=== PATIENT | male | born 1975 | race Caucasian/White ===

== ENCOUNTER 2019-07-22 22:08 | Inpatient (IN) | payer OTHER ==
[2019-07-23] MEDS ORDERED: oxyCODONE 15 MG TAB PO
[2019-07-23] MEDS ORDERED: oxyCODONE 5 MG TAB PO
[2019-07-23] MEDS: oxyCODONE 5 MG TAB PO ×5 (00:08→22:00)
[2019-07-23] MEDS ORDERED: HYDROmorphONE 0.5 MG/0.5 ML SYG IV (01:00)
[2019-07-23] MEDS ORDERED: ACETAMINOPHEN 325 MG TAB PO (01:30)
[2019-07-23] MEDS ORDERED: MAGNESIUM HYDROXIDE 30ML CUP PO (01:30)
[2019-07-23] MEDS ORDERED: LACTULOSE 30ML CUP PO (01:30)
[2019-07-23] MEDS ORDERED: BISACODYL 10 MG SUPP PR (01:30)
[2019-07-23] MEDS: VORICONAZOLE 200 MG TAB PO ×3 (01:35→21:34)
[2019-07-23] MEDS ORDERED: PENDING SANTYL ORDER FOR WOUND CARE XX (04:30)
[2019-07-23] MEDS ORDERED: VANCOMYCIN 1 GM IVPB (06:00)
[2019-07-23] MEDS: VANCOMYCIN 1 GM 250 ML IVPB (06:00)
[2019-07-23] MEDS: PANTOPRAZOLE (EC) 40 MG TAB PO (06:34)
[2019-07-23] MEDS ORDERED: VORICONAZOLE 200 MG TAB PO (09:00)
[2019-07-23] MEDS: ONDANSETRON 4 MG TAB PO (09:03)
[2019-07-23] MEDS: FAMOTIDINE 20 MG TAB PO ×2 (09:05→21:33)
[2019-07-23] MEDS: ENOXAPARIN 40 MG/0.4 ML SYG SC (09:05)
[2019-07-23] MEDS: GABAPENTIN 300 MG CAP PO ×3 (09:05→21:34)
[2019-07-23] MEDS: DOCUSATE SODIUM 100 MG CAP PO ×2 (09:05→21:32)
[2019-07-23] MEDS ORDERED: VANCOMYCIN IV PER PHARMACY XX (10:00)
[2019-07-23] MEDS: VANCOMYCIN 1.5 GM/NS 250 ML 250 ML IVPB ×2 (12:00→17:13)
[2019-07-23] MEDS: SENNA TAB PO (21:32)
[2019-07-24] MEDS: VANCOMYCIN 1 GM 250 ML IVPB ×3 (00:32→17:24)
[2019-07-24] MEDS ORDERED: VANCOMYCIN 1.25 GM/NS 250 ML 250 ML IVPB (01:00)
[2019-07-24] MEDS: PANTOPRAZOLE (EC) 40 MG TAB PO (06:20)
[2019-07-24] MEDS: GABAPENTIN 300 MG CAP PO ×3 (08:50→20:55)
[2019-07-24] MEDS: FAMOTIDINE 20 MG TAB PO ×2 (08:50→20:55)
[2019-07-24] MEDS: DOCUSATE SODIUM 100 MG CAP PO ×2 (08:50→20:53)
[2019-07-24] MEDS: VORICONAZOLE 200 MG TAB PO ×2 (08:50→20:55)
[2019-07-24] MEDS: oxyCODONE 5 MG TAB PO ×4 (08:54→19:47)
[2019-07-24] MEDS: ENOXAPARIN 40 MG/0.4 ML SYG SC ×2 (09:00→10:36)
[2019-07-24] MEDS: ONDANSETRON 4 MG INJ IV (09:02)
[2019-07-24] MEDS: ONDANSETRON 4 MG TAB PO (09:06)
[2019-07-24] MEDS: POLYETHYLENE GLYCOL 17 GM PACKET PO (10:43)
[2019-07-24] MEDS ORDERED: NACL 0.9% 3 ML SYG IV (11:00)
[2019-07-24] MEDS: PSYLLIUM 28% PACKET PO ×2 (12:25→21:00)
[2019-07-24] MEDS: SOD FERRIC GLUC COMPLX 125 MG in SOD CHLORIDE 0.9% 100 ML IVPB (13:50)
[2019-07-24] MEDS: SENNA TAB PO (20:55)
[2019-07-25] MEDS: VANCOMYCIN 1 GM 250 ML IVPB ×3 (02:17→17:09)
[2019-07-25] MEDS: oxyCODONE 5 MG TAB PO ×5 (02:20→20:16)
[2019-07-25] MEDS: PANTOPRAZOLE (EC) 40 MG TAB PO (06:34)
[2019-07-25] MEDS: PSYLLIUM 28% PACKET PO ×2 (08:44→20:16)
[2019-07-25] MEDS: DOCUSATE SODIUM 100 MG CAP PO ×2 (08:44→20:15)
[2019-07-25] MEDS: GABAPENTIN 300 MG CAP PO ×3 (08:44→20:15)
[2019-07-25] MEDS: VORICONAZOLE 200 MG TAB PO ×2 (08:44→20:16)
[2019-07-25] MEDS: FAMOTIDINE 20 MG TAB PO ×2 (08:44→20:16)
[2019-07-25] MEDS: ENOXAPARIN 40 MG/0.4 ML SYG SC (08:48)
[2019-07-25] MEDS: FERROUS SULFATE (EC) 325 MG TAB PO (17:07)
[2019-07-25] MEDS: SENNA TAB PO (20:16)
[2019-07-26] MEDS: VANCOMYCIN 1 GM 250 ML IVPB ×3 (00:56→17:36)
[2019-07-26] MEDS: oxyCODONE 5 MG TAB PO ×5 (01:06→20:15)
[2019-07-26] MEDS: PANTOPRAZOLE (EC) 40 MG TAB PO (06:37)
[2019-07-26] MEDS: FERROUS SULFATE (EC) 325 MG TAB PO ×4 (08:22→20:14)
[2019-07-26] MEDS: DOCUSATE SODIUM 100 MG CAP PO ×2 (08:23→20:14)
[2019-07-26] MEDS: VORICONAZOLE 200 MG TAB PO ×2 (08:24→20:14)
[2019-07-26] MEDS: PSYLLIUM 28% PACKET PO (08:24)
[2019-07-26] MEDS: FAMOTIDINE 20 MG TAB PO ×2 (08:24→20:14)
[2019-07-26] MEDS: GABAPENTIN 300 MG CAP PO ×3 (08:24→20:14)
[2019-07-26] MEDS: ENOXAPARIN 40 MG/0.4 ML SYG SC (08:36)
[2019-07-26] MEDS: ONDANSETRON 4 MG TAB PO (09:47)
[2019-07-26] MEDS: POLYETHYLENE GLYCOL 17 GM PACKET PO (20:14)
[2019-07-26] MEDS: SENNA TAB PO (20:14)
[2019-07-26] MEDS: HYDROGEN PEROXIDE 118 ML TOP (20:15)
[2019-07-27] MEDS: VANCOMYCIN 1 GM 250 ML IVPB ×3 (00:21→17:30)
[2019-07-27] MEDS: ONDANSETRON 4 MG TAB PO ×2 (06:51→21:21)
[2019-07-27] MEDS: PANTOPRAZOLE (EC) 40 MG TAB PO (06:51)
[2019-07-27] MEDS: oxyCODONE 5 MG TAB PO ×4 (07:01→21:23)
[2019-07-27] MEDS: POLYETHYLENE GLYCOL 17 GM PACKET PO ×2 (09:00→21:23)
[2019-07-27] MEDS: FERROUS SULFATE (EC) 325 MG TAB PO (09:00)
[2019-07-27] MEDS ORDERED: AQUAPHOR 52.5 GM OINT TOP (09:00)
[2019-07-27] MEDS: DOCUSATE SODIUM 100 MG CAP PO ×2 (09:02→21:21)
[2019-07-27] MEDS: VORICONAZOLE 200 MG TAB PO ×2 (09:05→21:21)
[2019-07-27] MEDS: GABAPENTIN 300 MG CAP PO ×3 (09:05→21:21)
[2019-07-27] MEDS: FAMOTIDINE 20 MG TAB PO ×2 (09:05→21:22)
[2019-07-27] MEDS: ENOXAPARIN 40 MG/0.4 ML SYG SC (09:08)
[2019-07-27] MEDS: HYDROGEN PEROXIDE 118 ML TOP ×2 (12:30→21:23)
[2019-07-27] MEDS: SENNA TAB PO (21:21)
[2019-07-28] MEDS: VANCOMYCIN 1 GM 250 ML IVPB ×3 (01:16→16:40)
[2019-07-28] MEDS: PANTOPRAZOLE (EC) 40 MG TAB PO (06:53)
[2019-07-28] MEDS: POLYETHYLENE GLYCOL 17 GM PACKET PO ×2 (09:38→20:12)
[2019-07-28] MEDS: VORICONAZOLE 200 MG TAB PO ×2 (09:39→20:12)
[2019-07-28] MEDS: GABAPENTIN 300 MG CAP PO ×3 (09:39→20:12)
[2019-07-28] MEDS: oxyCODONE 5 MG TAB PO ×3 (09:39→19:47)
[2019-07-28] MEDS: SILVER SULFADIAZINE 1% 25 GM CR TOP (09:39)
[2019-07-28] MEDS: FAMOTIDINE 20 MG TAB PO ×2 (09:40→20:12)
[2019-07-28] MEDS: ENOXAPARIN 40 MG/0.4 ML SYG SC (09:40)
[2019-07-28] MEDS: DOCUSATE SODIUM 100 MG CAP PO ×2 (09:40→20:12)
[2019-07-28] MEDS: HYDROGEN PEROXIDE 118 ML TOP ×2 (09:41→21:17)
[2019-07-28] MEDS: ONDANSETRON 4 MG TAB PO (10:42)
[2019-07-28] MEDS: SENNA TAB PO (20:12)
[2019-07-29] MEDS: VANCOMYCIN 1 GM 250 ML IVPB ×3 (01:23→16:04)
[2019-07-29] MEDS: PANTOPRAZOLE (EC) 40 MG TAB PO (06:25)
[2019-07-29] MEDS: oxyCODONE 5 MG TAB PO ×3 (09:08→16:04)
[2019-07-29] MEDS: POLYETHYLENE GLYCOL 17 GM PACKET PO (09:12)
[2019-07-29] MEDS: VORICONAZOLE 200 MG TAB PO (09:14)
[2019-07-29] MEDS: FAMOTIDINE 20 MG TAB PO (09:24)
[2019-07-29] MEDS: DOCUSATE SODIUM 100 MG CAP PO (09:25)
[2019-07-29] MEDS: GABAPENTIN 300 MG CAP PO ×2 (09:26→12:46)
[2019-07-29] MEDS: SILVER SULFADIAZINE 1% 25 GM CR TOP (09:27)
[2019-07-29] MEDS: HYDROGEN PEROXIDE 118 ML TOP (09:27)
[2019-07-29] MEDS: ENOXAPARIN 40 MG/0.4 ML SYG SC (09:33)
== END 2019-07-29 18:45 | DRG 561 ==
LOC: VRC 22:08
PROC: F07Z9FZ Gait Training/Functional Ambulation Treatment using Assistive, Adaptive, Supportive or Protective Equipment (ICD-10-PCS; principal; 2019-07-22)
PROC: F07Z8FZ Transfer Training Treatment using Assistive, Adaptive, Supportive or Protective Equipment (ICD-10-PCS; 2019-07-22)
PROC: F07Z5FZ Bed Mobility Treatment using Assistive, Adaptive, Supportive or Protective Equipment (ICD-10-PCS; 2019-07-22)
PROC: F08Z2FZ Grooming/Personal Hygiene Treatment using Assistive, Adaptive, Supportive or Protective Equipment (ICD-10-PCS; 2019-07-22)
PROC: F08Z0FZ Bathing/Showering Techniques Treatment using Assistive, Adaptive, Supportive or Protective Equipment (ICD-10-PCS; 2019-07-22)
PROC: F08Z1FZ Dressing Techniques Treatment using Assistive, Adaptive, Supportive or Protective Equipment (ICD-10-PCS; 2019-07-22)
DX: S42.302D Unspecified fracture of shaft of humerus, left arm, subsequent encounter for fracture with routine healing (principal); S82.002E Unspecified fracture of left patella, subsequent encounter for open fracture type I or II with routine healing; S67.197D Crushing injury of left little finger, subsequent encounter; D50.9 Iron deficiency anemia, unspecified; I10 Essential (primary) hypertension; V29.9XXD Motorcycle rider (driver) (passenger) injured in unspecified traffic accident, subsequent encounter
CPT/HCPCS: 36573; 80048; 80053; 80202; 81003; 83540; 85025; 85610; 85730; 87081; 87086; 97110; 97112; 97116; 97163; 97167; 97530; 97535; 97542